=== PATIENT | male | born 1960 | race Caucasian/White ===

== ENCOUNTER → 2019-01-07 | Outpatient (CLI) | payer BC, OTHER ==
[2019-01-07 12:47] LABS: BASO % 0.5 % (0.0-1.0); HEMATOCRIT 49.2 % (42.0-52.0); HEMOGLOBIN 15.6 g/dl (13.5-17.5); LYMPH # 0.7 10^3/uL (1.5-4.5); LYMPH % 11.4 % (24.0-44.0); MEAN CORPUSCULAR HEMOGLOBIN 29.7 pg (27.0-33.0); MEAN CORPUSCULAR HGB CONC 31.7 g/dl (32.0-36.5); MEAN CORPUSCULAR VOLUME 93.5 fl (80.0-96.0); MONO # 0.7 10^3/uL (0.0-0.8); MONO % 11.6 % (0.0-5.0); NEUTROPHILS # 4.3 10^3/uL (1.8-7.7); NEUTROPHILS % 76.1 % (36.0-66.0); PLATELET COUNT, AUTOMATED 236 10^3/uL (150-450); RED BLOOD COUNT 5.26 10^6/uL (4.30-6.10); WHITE BLOOD COUNT 5.7 10^3/uL (4.0-10.0)
[2019-01-07 13:29] LABS: ALBUMIN 3.8 GM/DL (3.2-5.2); BILIRUBIN,TOTAL 0.4 MG/DL (0.2-1.0); CALCIUM LEVEL 8.5 MG/DL (8.5-10.1); CREATININE FOR GFR 1.37 MG/DL (0.70-1.30); GLOMERULAR FILTRATION RATE 57.2 (>56); POTASSIUM SERUM 4.2 MEQ/L (3.5-5.1); TOTAL PROTEIN 7.8 GM/DL (6.4-8.2)
== END ==
LOC: M LAB 12:10
PROVIDERS: ATTEND Physician Assistant
DX: R19.7 Diarrhea, unspecified (principal)

== ENCOUNTER → 2020-08-09 | Outpatient (CLI) | payer BC, OTHER ==
--- NOTE | 2020-08-09 08:25 | REP ---
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 Diaphragmatic hernia without obstruction or gangrene. Hematochezia. 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 COMPARISON: Abdominal ultrasound dated 01/20/2016. TECHNIQUE: Right upper quadrant abdominal ultrasound. FINDINGS: There is a cholecystectomy. There is no intrahepatic or extrahepatic biliary duct dilatation. The common biliary duct measures 5.5 mm in diameter. The hepatic parenchyma is homogeneous. No hepatic masses or cysts are identified. There are echogenic foci along the falciform ligament of uncertain significance, abdominal fat, fibrosis, calcifications combination. The pancreas is obscured by bowel gas. The right kidney is normal size measuring 14.2 x 6.4 x 5.9 cm. There is no right renal calculus or hydronephrosis. No right renal solid or cystic mass. IMPRESSION: Cholecystectomy. No biliary duct dilatation. Hepatic parenchyma is homogeneous. No hepatic masses or cysts are identified. Nonspecific echogenic foci along the falciform ligament as described. Pancreas is obscured. The right kidney is unremarkable. <Electronically signed by Nelson Avila > 08/09/20 [id number]
== END ==
LOC: M RAD 07:12
PROVIDERS: ATTEND Internal Medicine Gastroenterology
DX: K22.70 Barrett's esophagus without dysplasia (principal); K44.9 Diaphragmatic hernia without obstruction or gangrene; K92.1 Melena; K57.30 Diverticulosis of large intestine without perforation or abscess without bleeding; I85.00 Esophageal varices without bleeding